=== PATIENT | male | born 1970 | race Two or more races ===

== ENCOUNTER 2021-05-09 11:45 | Inpatient (IN) | payer MEDICARE ==
[~2021-05-09] VITALS: Ht 157.5 cm; Wt 67.1 kg
--- NOTE | 2021-05-09 11:50 | NUR ---
EKG DONE IN TRIAGE.
[2021-05-09] MEDS ORDERED: SODIUM CHLORIDE FLUSH 10ML SYR IVF ONE (12:00)
--- NOTE | 2021-05-09 12:00 | NUR ---
PT AMBULATORY TO ROOM FROM TRIAGE, CHANGED INTO GOWN, ALL MONITORS IN PLACE. PT C/O ABNORMAL LABS TAKEN YESTERDAY. PER FAMILY PT POTASSIUM WAS 7 AND THEY WERE SENT TO THE ER TODAY. PT DENIES ANY SYMPTOMS AND STATES HE FEELS "FINE" CALL LIGHT WITHIN REACH, FAMILY AT BS, BED IN LOWEST POSITION, BED RAILS UP X2
--- NOTE | 2021-05-09 12:02 | NUR ---
ERP AT BS FOR EVAL
[2021-05-09] MEDS ORDERED: FURO20TA3 PO (12:05)
[2021-05-09] MEDS ORDERED: AMLO-150 PO (12:05)
[2021-05-09] MEDS ORDERED: LISI40TA9 PO (12:05)
[2021-05-09] MEDS ORDERED: ATOR-2 PO (12:05)
[2021-05-09] MEDS ORDERED: TAMS-11 PO (12:05)
[2021-05-09] MEDS ORDERED: INSU100I13 SC (12:05)
[2021-05-09 12:17] LABS: BASOPHILS % (AUTO) 1 % (0-1); EOSINOPHILS % (AUTO) 1 % (1-7); LYMPHOCYTES % (AUTO) 17 % (22-44); MEAN CORPUSCULAR HEMOGLOBIN 30.1 pg (27.5-34.5); MEAN CORPUSCULAR HGB CONC 33.9 g/dL (33.2-36.2); MEAN PLATELET VOLUME 7.6 fL (7.4-10.4); MONOCYTES % (AUTO) 4 % (2-9); NEUTROPHILS % (AUTO) 77 % (42-75); PLATELET COUNT 383 x10^3/uL (130-400); RED BLOOD COUNT 3.89 x10^6/uL (4.38-5.82); RED CELL DISTRIBUTION WIDTH 13.8 % (9.4-14.8)
[2021-05-09 12:25] LABS: ALBUMIN 3.2 g/dL (3.4-5.0); ANION GAP 9 mmol/L (5-15); CALCIUM 8.8 mg/dL (8.5-10.1); CHLORIDE 113 mmol/L (98-107); CREATININE 5.77 mg/dL (0.7-1.3)
[2021-05-09] MEDS ORDERED: SODIUM CHLORIDE 0.9% 1,000ML IVBOLUS ONE (13:00)
--- NOTE | 2021-05-09 13:22 | NUR ---
JOCELYN BILLS - FAMILY FRIEND WHO IS CAREGIVER/FIRST MATE
--- NOTE | 2021-05-09 13:25 | NUR ---
PT RESTING ON CECILIA, NADN/VSS. PT UPDATED ON POC. FAMILY AT BS. CALL LIGHT WITHIN REACH, BED IN LOWEST POSITION, BED RAILS UP X2. PT STATES NO NEEDS AT THIS TIME
--- NOTE | 2021-05-09 13:45 | NUR ---
REPORT TO ALEX STEPHENS
--- NOTE | 2021-05-09 13:47 | NUR ---
ASSUMED CARE OF PATIENT. REPORT GIVEN FROM ALEX NAPIER. PT RESTING IN ROOM. NO ACUTE DISTRESS NOTED. WINE SALES REPRESENTATIVE ON. SINUS TACH NOTED. CALL LIGHT IN PLACE.W ILL CONTINUE TO MONITOR.
[2021-05-09] MEDS ORDERED: ENOXAPARIN 40 MG/0.4 ML SQ SCH (14:30)
[2021-05-09] MEDS ORDERED: METOCLOPRAMIDE 5 MG/ML, 2ML IVPush PRN (14:30)
[2021-05-09] MEDS ORDERED: LABETALOL 5MG/ML, 20ML IVPush PRN (14:30)
[2021-05-09] MEDS ORDERED: SODIUM POLYSTYRENE SULFONATE ORAL SUSP PO ONE (14:30)
[2021-05-09] MEDS ORDERED: ACETAMINOPHEN 325 MG TABLET PO PRN (14:30)
--- NOTE | 2021-05-09 14:58 | NUR ---
PT HAS BEEN SEEN BY THE HOSPITALIST. VS STABLE. ELECTRICAL CONTINUITY INSPECTOR ON. NO ACUTE DISTRESS NOTED. WILL CONTINUE TO MONITOR.
--- NOTE | 2021-05-09 15:14 | NUR ---
[facility]/ VISITED PT AT BEDSIDE. PT STATED HE HAS MEDICARE PRIMARY INSURANCE. [facility] NOT ACCEPTING ACCOUNT.
[2021-05-09] MEDS ORDERED: ENOXAPARIN 40 MG/0.4 ML ONE (15:42)
--- NOTE | 2021-05-09 15:55 | NUR ---
US AT BEDSIDE. VS STABLE. CALL LIGHT IN PLACE WILL CONTINUE TO MONITOR.
[2021-05-09] MEDS: SODIUM CHLORIDE 0.9% 1,000 ML IV SCH ×2 (16:00→23:27)
--- NOTE | 2021-05-09 17:56 | NUR ---
PT USING BESIDE COMMODE
[2021-05-09] MEDS ORDERED: HEPARIN 5,000 UNITS/ML, 1ML SQ SCH (19:30)
[2021-05-09 20:12] VITALS: BP 166/84
[2021-05-09] MEDS: INSULIN LISPRO 100 UNITS/ML, PEN SQ-INSULIN SCH (20:17)
[2021-05-09] MEDS: INSULIN GLARGINE 100 UNITS/ML, PEN SQ-INSULIN SCH (20:17)
[2021-05-09] MEDS: METOPROLOL TARTRATE 50 MG TAB PO SCH (20:18)
[2021-05-09] MEDS: ATORVASTATIN 80 MG TABLET PO SCH (20:18)
[2021-05-09] MEDS ORDERED: TEMAZEPAM 15 MG CAPSULE PO PRN (21:00)
[2021-05-09] MEDS ORDERED: MELATONIN 5 MG TABLET PO PRN (21:00)
[2021-05-09 23:48] LABS: MICROSCOPIC AUTO
[2021-05-10 00:24] VITALS: BP 175/102
[2021-05-10 05:59] VITALS: BP 153/84
[2021-05-10] MEDS: METOPROLOL TARTRATE 50 MG TAB PO SCH ×2 (06:01→17:30)
[2021-05-10] MEDS: SODIUM CHLORIDE 0.9% 1,000 ML IV SCH ×3 (06:04→19:34)
[2021-05-10 06:56] LABS: ANION GAP 6 mmol/L (5-15); CALCIUM 8.4 mg/dL (8.5-10.1); CHLORIDE 118 mmol/L (98-107)
[2021-05-10] MEDS: INSULIN LISPRO 100 UNITS/ML, PEN SQ-INSULIN SCH ×4 (07:00→21:09)
[2021-05-10 07:05] LABS: CREATININE 4.61 mg/dL (0.7-1.3)
[2021-05-10] MEDS ORDERED: AMLODIPINE 5 MG TABLET PO SCH (09:00)
[2021-05-10 09:14] VITALS: BP 189/96
[2021-05-10] MEDS: TAMSULOSIN 0.4 MG CAP.ER.24H PO SCH (10:01)
[2021-05-10] MEDS: SENNA/DOCUSATE TABLET PO SCH (10:02)
[2021-05-10 15:23] VITALS: BP 168/90
[2021-05-10] MEDS: SODIUM BICARBONATE 650 MG TABLET PO SCH ×2 (17:30→21:09)
[2021-05-10] MEDS: HEPARIN 5,000 UNITS/ML, 1ML SQ SCH (17:31)
[2021-05-10 18:38] VITALS: BP 168/88
[2021-05-10 19:00] LABS: CREATININE,URINE RANDOM 41.3 mg/dL
[2021-05-10] MEDS: ATORVASTATIN 80 MG TABLET PO SCH (21:09)
[2021-05-10] MEDS: INSULIN GLARGINE 100 UNITS/ML, PEN SQ-INSULIN SCH (21:09)
[2021-05-11] VITALS (8 sets, daily range): BP systolic 126–183; BP diastolic 72–105
[2021-05-11] MEDS: HEPARIN 5,000 UNITS/ML, 1ML SQ SCH ×3 (00:32→17:22)
[2021-05-11] MEDS: SODIUM CHLORIDE 0.9% 1,000 ML IV SCH ×2 (01:50→09:38)
[2021-05-11 05:54] LABS: BASOPHILS % (AUTO) 1 % (0-1); EOSINOPHILS % (AUTO) 2 % (1-7); LYMPHOCYTES % (AUTO) 22 % (22-44); MEAN CORPUSCULAR HEMOGLOBIN 29.8 pg (27.5-34.5); MEAN CORPUSCULAR HGB CONC 33.4 g/dL (33.2-36.2); MEAN PLATELET VOLUME 7.6 fL (7.4-10.4); MONOCYTES % (AUTO) 6 % (2-9); NEUTROPHILS % (AUTO) 70 % (42-75); PLATELET COUNT 332 x10^3/uL (130-400); RED BLOOD COUNT 3.54 x10^6/uL (4.38-5.82); RED CELL DISTRIBUTION WIDTH 13.9 % (9.4-14.8)
[2021-05-11] MEDS: METOPROLOL TARTRATE 50 MG TAB PO SCH ×2 (05:57→17:22)
[2021-05-11 06:07] LABS: ALBUMIN 2.6 g/dL (3.4-5.0); ANION GAP 5 mmol/L (5-15); CALCIUM 7.9 mg/dL (8.5-10.1); CHLORIDE 122 mmol/L (98-107)
[2021-05-11 06:10] LABS: ALANINE AMINOTRANSFERASE 21 U/L (12-78); ALKALINE PHOSPHATASE 143 U/L (45-117); BILIRUBIN,TOTAL 0.3 mg/dL (0.2-1.0); CREATININE 3.88 mg/dL (0.7-1.3); TOTAL PROTEIN 6.6 g/dL (6.4-8.2)
[2021-05-11] MEDS: hydrALAzine 20 MG/ML, 1ML IVPush PRN (06:45)
[2021-05-11] MEDS: INSULIN LISPRO 100 UNITS/ML, PEN SQ-INSULIN SCH ×4 (07:00→21:00)
[2021-05-11] MEDS: SENNA/DOCUSATE TABLET PO SCH (09:00)
[2021-05-11] MEDS: SODIUM BICARBONATE 650 MG TABLET PO SCH ×3 (09:23→21:18)
[2021-05-11] MEDS: AMLODIPINE 5 MG TABLET PO SCH (09:23)
[2021-05-11] MEDS: TAMSULOSIN 0.4 MG CAP.ER.24H PO SCH (09:24)
[2021-05-11] MEDS ORDERED: LOSARTAN 25MG TABLET PO SCH (21:00)
[2021-05-11] MEDS: ATORVASTATIN 80 MG TABLET PO SCH (21:18)
[2021-05-11] MEDS: INSULIN GLARGINE 100 UNITS/ML, PEN SQ-INSULIN SCH (21:19)
[2021-05-12] VITALS (7 sets, daily range): BP systolic 127–188; BP diastolic 73–99
[2021-05-12] MEDS: HEPARIN 5,000 UNITS/ML, 1ML SQ SCH ×3 (01:58→18:51)
[2021-05-12] MEDS: SODIUM CHLORIDE 0.9% 1,000 ML IV SCH (01:59)
[2021-05-12] MEDS: METOPROLOL TARTRATE 50 MG TAB PO SCH ×2 (05:14→18:51)
[2021-05-12 05:38] LABS: ANION GAP 4 mmol/L (5-15); CALCIUM 7.8 mg/dL (8.5-10.1); CHLORIDE 120 mmol/L (98-107); CREATININE 3.75 mg/dL (0.7-1.3)
[2021-05-12] MEDS: INSULIN LISPRO 100 UNITS/ML, PEN SQ-INSULIN SCH ×4 (07:00→20:38)
[2021-05-12] MEDS: SENNA/DOCUSATE TABLET PO SCH (09:00)
[2021-05-12] MEDS: AMLODIPINE 5 MG TABLET PO SCH (10:59)
[2021-05-12] MEDS: SODIUM BICARBONATE 650 MG TABLET PO SCH ×3 (10:59→20:36)
[2021-05-12] MEDS: TAMSULOSIN 0.4 MG CAP.ER.24H PO SCH (10:59)
[2021-05-12] MEDS ORDERED: LOSARTAN 50MG TABLET PO ONE (11:30)
[2021-05-12] MEDS: hydrALAzine 20 MG/ML, 1ML IVPush PRN (15:46)
[2021-05-12] MEDS: ATORVASTATIN 80 MG TABLET PO SCH (20:36)
[2021-05-12] MEDS: LOSARTAN 50MG TABLET PO SCH (20:37)
[2021-05-12] MEDS: INSULIN GLARGINE 100 UNITS/ML, PEN SQ-INSULIN SCH (20:38)
[2021-05-13 00:41] VITALS: BP 154/85
[2021-05-13] MEDS: HEPARIN 5,000 UNITS/ML, 1ML SQ SCH ×3 (02:30→17:54)
[2021-05-13] MEDS: METOPROLOL TARTRATE 50 MG TAB PO SCH ×2 (05:16→17:54)
[2021-05-13] MEDS: INSULIN LISPRO 100 UNITS/ML, PEN SQ-INSULIN SCH ×4 (07:00→20:46)
[2021-05-13 08:27] VITALS: BP 188/93
[2021-05-13 08:30] LABS: ALBUMIN 2.4 g/dL (3.4-5.0); CALCIUM 8.1 mg/dL (8.5-10.1); CHLORIDE 117 mmol/L (98-107); CREATININE 3.77 mg/dL (0.7-1.3)
[2021-05-13] MEDS: AMLODIPINE 10 MG TAB PO SCH (08:31)
[2021-05-13] MEDS: LOSARTAN 50MG TABLET PO SCH ×2 (08:31→20:44)
[2021-05-13] MEDS: TAMSULOSIN 0.4 MG CAP.ER.24H PO SCH (08:32)
[2021-05-13] MEDS: SODIUM BICARBONATE 650 MG TABLET PO SCH ×3 (08:32→20:44)
[2021-05-13] MEDS: SENNA/DOCUSATE TABLET PO SCH (08:32)
[2021-05-13 08:40] LABS: ANION GAP 3 mmol/L (5-15)
[2021-05-13] MEDS: hydrALAzine 20 MG/ML, 1ML IVPush PRN (08:42)
[2021-05-13 08:59] LABS: INTERNATIONAL NORMALIZED RATIO 0.97 (0.93-1.1); PROTHROMBIN TIME 10.4 Seconds (9.6-11.5)
[2021-05-13 09:12] VITALS: BP 120/67
[2021-05-13] MEDS ORDERED: MIDAZOLAM 1 MG/ML, 5ML ONE (11:09)
[2021-05-13] MEDS ORDERED: FENTANYL PF 100 MCG/2ML ONE (11:09)
[2021-05-13] MEDS ORDERED: FLUMAZENIL 0.1 MG/1 ML, 5ML ONE (11:09)
[2021-05-13] MEDS ORDERED: NALOXONE 1 MG/ML, 2ML ONE (11:09)
[2021-05-13] MEDS ORDERED: LIDOCAINE 1%, 10ML ONE (11:19)
[2021-05-13] MEDS ORDERED: ERGOCALCIFEROL 50,000 UNIT CAPSULE PO SCH (12:00)
[2021-05-13 12:30] VITALS: BP 117/63
[2021-05-13 18:46] VITALS: BP 142/75
[2021-05-13] MEDS: ATORVASTATIN 80 MG TABLET PO SCH (20:44)
[2021-05-13] MEDS: INSULIN GLARGINE 100 UNITS/ML, PEN SQ-INSULIN SCH (20:46)
[2021-05-14 00:09] VITALS: BP 140/76
[2021-05-14] MEDS: HEPARIN 5,000 UNITS/ML, 1ML SQ SCH ×3 (02:52→17:40)
[2021-05-14] MEDS: METOPROLOL TARTRATE 50 MG TAB PO SCH ×2 (05:34→17:40)
[2021-05-14 06:42] VITALS: BP 149/79
[2021-05-14] MEDS: INSULIN LISPRO 100 UNITS/ML, PEN SQ-INSULIN SCH ×4 (07:00→19:52)
[2021-05-14 07:40] LABS: ALBUMIN 2.5 g/dL (3.4-5.0); ANION GAP 5 mmol/L (5-15); CALCIUM 8.3 mg/dL (8.5-10.1); CHLORIDE 116 mmol/L (98-107)
[2021-05-14 07:44] LABS: ALANINE AMINOTRANSFERASE 23 U/L (12-78); ALKALINE PHOSPHATASE 132 U/L (45-117); BILIRUBIN,TOTAL 0.4 mg/dL (0.2-1.0); CREATININE 4.04 mg/dL (0.7-1.3); TOTAL PROTEIN 6.4 g/dL (6.4-8.2)
[2021-05-14] MEDS: SENNA/DOCUSATE TABLET PO SCH (09:00)
[2021-05-14] MEDS: SODIUM BICARBONATE 650 MG TABLET PO SCH ×3 (09:28→19:51)
[2021-05-14] MEDS: TAMSULOSIN 0.4 MG CAP.ER.24H PO SCH (09:28)
[2021-05-14] MEDS: AMLODIPINE 10 MG TAB PO SCH (09:28)
[2021-05-14] MEDS: LOSARTAN 50MG TABLET PO SCH ×2 (09:28→19:51)
[2021-05-14] MEDS ORDERED: ERGO500017 PO (12:51)
[2021-05-14] MEDS ORDERED: INSU100I13 SQ-INSULIN (12:51)
[2021-05-14] MEDS ORDERED: LOSA50TA2 PO (12:51)
[2021-05-14] MEDS ORDERED: METO50TA82 PO (12:51)
[2021-05-14] MEDS ORDERED: HYDR-3343 PO (12:51)
[2021-05-14] MEDS ORDERED: AMLO-211 PO (12:51)
[2021-05-14] MEDS ORDERED: SODI650T PO (12:51)
[2021-05-14 13:41] LABS: ANA SCREEN NEGATIVE (Negative)
[2021-05-14 14:26] VITALS: BP 134/83
[2021-05-14 19:07] VITALS: BP 144/72
[2021-05-14] MEDS: ATORVASTATIN 80 MG TABLET PO SCH (19:51)
[2021-05-14] MEDS: INSULIN GLARGINE 100 UNITS/ML, PEN SQ-INSULIN SCH (19:52)
[2021-05-15 00:40] VITALS: BP 132/76
[2021-05-15] MEDS: HEPARIN 5,000 UNITS/ML, 1ML SQ SCH ×2 (02:58→12:35)
[2021-05-15] MEDS: METOPROLOL TARTRATE 50 MG TAB PO SCH (05:13)
[2021-05-15 06:48] VITALS: BP 143/82
[2021-05-15] MEDS: INSULIN LISPRO 100 UNITS/ML, PEN SQ-INSULIN SCH ×2 (07:00→11:00)
[2021-05-15] MEDS: SENNA/DOCUSATE TABLET PO SCH (09:00)
[2021-05-15] MEDS: SODIUM BICARBONATE 650 MG TABLET PO SCH (12:36)
[2021-05-15] MEDS: AMLODIPINE 10 MG TAB PO SCH (12:36)
[2021-05-15] MEDS: LOSARTAN 50MG TABLET PO SCH (12:36)
[2021-05-15] MEDS: TAMSULOSIN 0.4 MG CAP.ER.24H PO SCH (12:37)
[2021-05-15 14:03] VITALS: BP 157/87
== END 2021-05-15 17:04 | disposition home or self-care (01) | DRG 684 ==
LOC: SUATTDRO 13:13 → ED 13:49 → 4WST 20:23
PROVIDERS: ADMIT Internal Medicine; ATTEND Family Medicine
PROC: 0TB13ZX Excision of Left Kidney, Percutaneous Approach, Diagnostic (ICD-10-PCS; principal; 2021-05-13)
DX: N17.0 Acute kidney failure with tubular necrosis (principal); E87.5 Hyperkalemia; D64.9 Anemia, unspecified; E11.319 Type 2 diabetes mellitus with unspecified diabetic retinopathy without macular edema; I16.0 Hypertensive urgency; N18.9 Chronic kidney disease, unspecified; R35.1 Nocturia; R31.9 Hematuria, unspecified; I12.9 Hypertensive chronic kidney disease with stage 1 through stage 4 chronic kidney disease, or unspecified chronic kidney disease; E11.22 Type 2 diabetes mellitus with diabetic chronic kidney disease; H54.8 Legal blindness, as defined in USA; Z82.49 Family history of ischemic heart disease and other diseases of the circulatory system; Z83.3 Family history of diabetes mellitus
CPT/HCPCS: 36415; 50200; 71045; 76770; 77012; 80048; 80053; 80069; 81001; 82040; 82306; 82330; 82570; 82962; 83036; 83520; 83883; 83970; 84100; 84153; 84155; 84156; 84165; 84166; 85025; 85610; 86038; 86160; 86162; 86256; 88300; 88305; 88313; 88346; 88348; 88350; 93005; 96374; 99156; 99157; 99285; G0378; J1644; J1650; J2250; J3010; G0103; G0365; J0360; J1815; J2310; J7030

== ENCOUNTER 2021-05-29 10:00 | Inpatient (IN) | payer MEDICARE ==
[~2021-05-29] VITALS: Ht 157.5 cm; Wt 60.0 kg
[~2021-05-29 10:00] MED LIST: AMLO-150 PO; AMLO-211 PO; ATOR-2 PO; ERGO500017 PO; FURO20TA3 PO; HYDR-3343 PO; INSU100I13 SC; INSU100I13 SQ-INSULIN; LISI40TA9 PO; LOSA50TA2 PO; METO50TA82 PO; SODI650T PO; TAMS-11 PO
[2021-05-29 11:11] LABS: BASOPHILS % (AUTO) 3 % (0-1); EOSINOPHILS % (AUTO) 1 % (1-7); LYMPHOCYTES % (AUTO) 18 % (22-44); MEAN CORPUSCULAR HGB CONC 33.7 g/dL (33.2-36.2); MONOCYTES % (AUTO) 6 % (2-9); NEUTROPHILS % (AUTO) 71 % (42-75); PLATELET COUNT 458 x10^3/uL (130-400); RED BLOOD COUNT 3.43 x10^6/uL (4.38-5.82); RED CELL DISTRIBUTION WIDTH 13.8 % (9.4-14.8)
[2021-05-29 11:23] LABS: ALBUMIN 3.3 g/dL (3.4-5.0); ANION GAP 8 mmol/L (5-15); CALCIUM 8.9 mg/dL (8.5-10.1); CHLORIDE 114 mmol/L (98-107)
[2021-05-29 11:26] LABS: ALANINE AMINOTRANSFERASE 68 U/L (12-78); ALKALINE PHOSPHATASE 154 U/L (45-117); BILIRUBIN,TOTAL 0.4 mg/dL (0.2-1.0); CREATININE 5.93 mg/dL (0.7-1.3); TOTAL PROTEIN 7.8 g/dL (6.4-8.2)
[2021-05-29] MEDS ORDERED: SODIUM CHLORIDE 0.9% 1,000ML IVBOLUS ONE (13:30)
[2021-05-29] MEDS ORDERED: SODIUM CHLORIDE FLUSH 10ML SYR IVF ONE (13:30)
[2021-05-29] MEDS ORDERED: DEXTROSE 50%, 50ML SYRINGE IVPush ONE (13:30)
[2021-05-29] MEDS ORDERED: SODIUM ZIRCONIUM CYCLOSILICATE 10 GM PO ONE (13:30)
[2021-05-29] MEDS ORDERED: INSULIN REGULAR 100 UNITS/ML, 3ML VIAL IVPush ONE (13:30)
[2021-05-29] MEDS ORDERED: DEXTROSE 50%, 50ML SYRINGE ONE (13:47)
[2021-05-29] MEDS ORDERED: INSULIN SINGLE DOSE, ER ONE ×2 (13:48→14:13)
[2021-05-29 14:42] LABS: MICROSCOPIC INDICATED
--- NOTE | 2021-05-29 16:15 | NUR ---
REPORT GIVEN TO KEYONNA JOHNSON. PT RTG TO ROOM [id number]
[2021-05-29] MEDS ORDERED: ACETAMINOPHEN 325 MG TABLET PO PRN (16:30)
[2021-05-29] MEDS ORDERED: POLYETHYLENE GLYCOL 17 GM PACKET PO PRN (16:30)
[2021-05-29] MEDS ORDERED: ONDANSETRON 2MG/ML, 2ML IVPush PRN (16:30)
[2021-05-29] MEDS ORDERED: ONDANSETRON ODT 4 MG PO PRN (16:30)
[2021-05-29 16:42] VITALS: BP 161/85
[2021-05-29] MEDS: SODIUM CHLORIDE 0.9% 1,000 ML IV SCH (17:19)
[2021-05-29] MEDS: HEPARIN 5,000 UNITS/ML, 1ML SQ SCH (18:00)
[2021-05-29 18:46] VITALS: BP 148/80
[2021-05-29] MEDS: INSULIN LISPRO 100 UNITS/ML, PEN SQ-INSULIN SCH (19:44)
[2021-05-29] MEDS: INSULIN GLARGINE 100 UNITS/ML, PEN SQ-INSULIN SCH ×2 (19:45→20:14)
[2021-05-29] MEDS ORDERED: LISI10TA19 PO (23:46)
[2021-05-29] MEDS ORDERED: INSU100I13 SQ (23:47)
[2021-05-29] MEDS ORDERED: LISI40TA9 PO (23:49)
[2021-05-29] MEDS ORDERED: LISI-167 PO (23:49)
[2021-05-29] MEDS ORDERED: AMLO-210 PO (23:50)
[2021-05-30 01:11] VITALS: BP 169/96
[2021-05-30] MEDS: SODIUM CHLORIDE 0.9% 1,000 ML IV SCH ×2 (01:11→08:38)
[2021-05-30] MEDS: HEPARIN 5,000 UNITS/ML, 1ML SQ SCH ×2 (01:11→08:32)
[2021-05-30 05:00] LABS: BASOPHILS % (AUTO) 1 % (0-1); EOSINOPHILS % (AUTO) 1 % (1-7); LYMPHOCYTES % (AUTO) 21 % (22-44); MEAN CORPUSCULAR HEMOGLOBIN 30.7 pg (27.5-34.5); MEAN CORPUSCULAR HGB CONC 34.7 g/dL (33.2-36.2); MONOCYTES % (AUTO) 6 % (2-9); NEUTROPHILS % (AUTO) 71 % (42-75); PLATELET COUNT 405 x10^3/uL (130-400); RED BLOOD COUNT 3.11 x10^6/uL (4.38-5.82); RED CELL DISTRIBUTION WIDTH 13.5 % (9.4-14.8)
[2021-05-30 05:06] LABS: CHLORIDE 117 mmol/L (98-107)
[2021-05-30 05:17] LABS: ALANINE AMINOTRANSFERASE 47 U/L (12-78); ALBUMIN 2.8 g/dL (3.4-5.0); ALKALINE PHOSPHATASE 137 U/L (45-117); ANION GAP 9 mmol/L (5-15); BILIRUBIN,TOTAL 0.3 mg/dL (0.2-1.0); CALCIUM 8.1 mg/dL (8.5-10.1); CREATININE 4.73 mg/dL (0.7-1.3); TOTAL PROTEIN 6.8 g/dL (6.4-8.2)
[2021-05-30 07:20] VITALS: BP 180/89
[2021-05-30] MEDS: INSULIN LISPRO 100 UNITS/ML, PEN SQ-INSULIN SCH ×2 (08:26→11:36)
[2021-05-30] MEDS ORDERED: SENNA/DOCUSATE TABLET PO SCH (09:00)
[2021-05-30] MEDS ORDERED: AMLODIPINE 5 MG TABLET PO SCH (09:00)
[2021-05-30] MEDS ORDERED: FUROSEMIDE 40 MG TABLET PO SCH (11:00)
[2021-05-30 11:39] VITALS: BP 163/92
[2021-05-30] MEDS ORDERED: SODI10PO PO (11:54)
[2021-05-30] MEDS ORDERED: FURO20TA3 PO (11:54)
[2021-05-30] MEDS ORDERED: HYDR-3343 PO (11:54)
[2021-05-30] MEDS ORDERED: AMLO-150 PO (11:54)
[2021-05-30 12:25] VITALS: BP 159/89
== END 2021-05-30 15:44 | disposition home or self-care (01) | DRG 641 ==
LOC: ED 11:51 → EDIP 14:59 → 4WST 16:37
PROVIDERS: ADMIT Internal Medicine; ATTEND Family Medicine
DX: E87.5 Hyperkalemia (principal); N17.9 Acute kidney failure, unspecified; I12.0 Hypertensive chronic kidney disease with stage 5 chronic kidney disease or end stage renal disease; N18.5 Chronic kidney disease, stage 5; D64.9 Anemia, unspecified; E11.22 Type 2 diabetes mellitus with diabetic chronic kidney disease; E11.319 Type 2 diabetes mellitus with unspecified diabetic retinopathy without macular edema; E11.65 Type 2 diabetes mellitus with hyperglycemia; H54.7 Unspecified visual loss; E78.5 Hyperlipidemia, unspecified; Z83.3 Family history of diabetes mellitus; Z79.899 Other long term (current) drug therapy
CPT/HCPCS: 36415; 80053; 81001; 82962; 83735; 84100; 85025; 87086; 93005; 96361; 96374; 96375; 99285; G0378; J1644; J1815; J7030